=== PATIENT | male | born 1955 | race Caucasian/White ===

== ENCOUNTER → 2018-04-02 08:28 | Outpatient (CLI) | payer BC, SELFPAY ==
--- NOTE | 2018-04-02 08:31 | MR_ITS ---
MR head/brain wo con HISTORY: Headache and dizziness, syncope ITS.REASON: SYNCOPE ORDERING PHYSICIAN: Jon Arteaga MD PATIENT AGE: 62 years Comparison: 03/20/2019 TECHNIQUE: Standard multiplanar multiecho sequences are performed without contrast. FINDINGS: No midline shift, mass effect, intracranial hemorrhage, or hydrocephalus is evident. No evidence of acute infarction. There is mild generalized atrophy with scattered periventricular and subcortical T2 white matter hyperintensities. The cerebellopontine angles, cerebellum, and brainstem are unremarkable. The hippocampal gyri are unremarkable in the temporal horns are symmetric. Pituitary gland and optic chiasm are unremarkable. Craniocervical junction has an unremarkable appearance. No mastoid effusion or sinus air-fluid level. No large aneurysms. There is a cavum septum pellucidum and cavum vergae as a normal variant IMPRESSION: 1. No acute intracranial findings. 2. Scattered periventricular and subcortical T2 white matter hyperintensities which may be related to ischemic gliotic change from microvascular disease. Migraine headache. Have a similar appearance. Demyelinating process would be included in the differential diagnosis but felt to be less likely due to the imaging characteristics
== END ==
PROVIDERS: Family Provider Internal Medicine Adolescent Medicine; PCP Internal Medicine Adolescent Medicine; Visit Provider Internal Medicine Adolescent Medicine
DX: R55 Syncope and collapse (principal)
CPT/HCPCS: 70551; 95816

== ENCOUNTER → 2018-07-26 10:41 | Observation (INO) ==
[2018-07-25 12:04] LABS: Basophils % 0.4 % (0.1-2.0); Eosinophils % 0.3 % (0.1-12.0); Hematocrit 49.5 % (42.0-52.0); Hemoglobin 16.6 g/dL (14.1-18.0); Lymphocytes # 1.6 K/mm3 (0.7-4.5); Lymphocytes % 20.4 % (10-50); Mean Corpuscular HGB Conc 33.5 g/dL (31.8-35.4); Mean Corpuscular Hemoglobin 29.3 pg (27.0-31.2); Mean Corpuscular Volume 87.4 fl (80-94); Mean Platelet Volume 6.9 fl (7.4-10.4); Monocytes # 0.5 K/mm3 (0.1-1.0); Monocytes % 5.8 % (1.7-9.3); Neutrophils # 5.7 K/mm3 (1.8-7.8); Platelet Count 229 K/mm3 (142-424); Red Blood Count 5.67 M/mm3 (4.60-6.20); Red Cell Distribution Width 14.1 % (11.5-17.5); White Blood Count 7.7 K/mm3 (4.8-10.8)
[2018-07-25 12:13] LABS: Albumin Level 4.2 gm/dL (3.4-5.0); Albumin/Globulin Ratio 1.1 (1.1-1.8); Anion Gap 12.1 mEq/L (5-15); Bilirubin,Total 0.9 mg/dL (0.2-1.0); Calcium 8.9 mg/dL (8.5-10.1); Globulin 3.8 gm/dl (1.3-3.2); Potassium 4.1 mmoL/L (3.5-5.1)
--- NOTE | 2018-07-25 14:05 | Pharmacy Consult Notes ---
[facility] Pharmacy VTE Monitoring - Patient Demographics Admission date: 07/25/18 Report Date: 07/25/18 Time: 14:04 Allergies/Adverse Reactions: Patient Allergies venom-honey bee Allergy (Severe, Verified 07/25/18 11:58) swelling No Known Drug Allergies [NKDA] Allergy (Unknown, Verified 07/25/18 11:58) Height: 1.73 m Weight: 108.579 kg - VTE Risk Labs: VTE Related Lab Results Hgb 16.6 g/dL (14.1-18.0) 07/25/18 11:30 Hct 49.5 % (42.0-52.0) 07/25/18 11:30 Plt Count 229 K/mm3 (142-424) 07/25/18 11:30 BUN 16 mg/dL (7-18) 07/25/18 11:30 Creatinine 1.14 mg/dL (0.70-1.30) 07/25/18 11:30 Estimated Creat Clear 105 mL/min (50-200) 07/25/18 11:30 Was VTE Risk Assessment Performed: Yes VTE Score: 2 VTE Risk Level: Very Low Risk Clinical Trial Participant: No - Prophylaxis VTE Prophylaxis Ordered?: Yes Types of VTE Prophylaxis: TEDS Knee High
[2018-07-25 15:13] LABS: Microscopic, Urine URINE MICROSCOPIC (MICROSCOPIC)
[2018-07-25 15:15] LABS: Appearance,Urine CLEAR (Clear); Bilirubin,Urine Negative (Negative); Blood, Urine Negative (Negative); Color,Urine YELLOW (Yellow); Glucose,Urine (UA) Negative (Negative); Ketones,Urine Negative (Negative); Leukocyte Esterase,Urine Negative (Negative); PH,Urine 6.5 (5.0-8.5); Protein,Urine Negative (Negative); Specific Gravity, Urine <= 1.005 (1.005-1.030); Urobilinogen,Urine 0.2 EU/dl (0.2)
[2018-07-25 15:53] LABS: Mucus,Urine Trace /lpf
--- NOTE | 2018-07-25 21:02 | History & Physical Report ---
*Admission Date: 07/25/18 *Chief complaint: Mental Status Changes *History of present illness: Was in normal state of health and mind yesterday evening and early this AM per friends and family. Around 9AM drove to [place] for a breakfast with friends, but became confused and ended up in [place],after making several erratic calls to friends and family from his cell phone. Brought to my office and examined. Had improved, but was still "foggy" and described a "sinking" feeling followed by tingling before his memory lapse. [place] very fatigued after the episode. In office was more alert, but was placed in observation in [facility] for further eval and testing. [facility] History I have reviewed the patient's past medical history: Yes Medical History: Reports:: Asthma, Diabetes Mellitus Type 2, Hyperlipidemia, Hypertension Denies:: Cancer, Diabetes Mellitus Type 1, MRSA Have you ever received a pneumonia vaccine?: Yes Have you received a flu vaccine this season?: Yes Other Surgeries: Yes: Cardiac Catheterization Amputation: No - *Social History Educational Level: Completed College Smoking Status: Former smoker Tobacco Type: cigarettes Smoking End Date: 1997 Alcohol Intake: former Alcohol Intake Frequency:: holidays/special occasions only Occupational Status: employed Household Members: none Travel in the last 8 weeks: None - Psychiatric History Expresses thoughts of harming self/others: None Suicide Plan Description: No Plan Family Hx:: Anemia, Cancer, Coronary Artery Disease, Diabetes, Hyperlipidemia, Other (Seizures in brother, sister and mother) Review of Systems - Review of Systems Review of systems:: pertinent systems reviewed and negative unless documented below - Constitutional Denies anorexia, Denies body ache(s), Denies excessive sweating - Eyes Reports blurry vision, Denies blind spots - ENT Reports dizziness, Denies abnormal hearing, Denies bleeding gums - *Cardiovascular Denies chest pain - *Respiratory Denies change in phlegm color, Denies chest congestion - *Genitourinary Denies difficulty urinating - *Musculoskeletal Denies abnormal walking - Integumentary/Breasts Denies change in skin color, Denies yellowing of the skin - *Neurologic Reports abnormal hearing, Reports abnormal speech, Reports behavioral changes, Reports unsteadiness, Reports lack of coordination, Reports memory loss, Reports numbness, Reports tingling/numbness/burning sensations Meds Home Medications Medication Instructions Recorded Confirmed Type aspirin 81 mg tablet,delayed 162 mg PO DAILY tab 10/17/17 07/25/18 History release ezetimibe 10 mg tablet 10 mg PO HS tab 10/17/17 07/25/18 History fluticasone 200 mcg-vilanterol 25 1 inh INHALATION DAILY 10/17/17 07/25/18 History mcg/dose powder for inhalation liraglutide 0.6 mg/0.1 mL (18 mg/3 1.2 mg SUB-Q DAILY 10/17/17 07/25/18 History mL) subcutaneous pen injector montelukast 10 mg tablet 10 mg PO HS 10/17/17 07/25/18 History omeprazole 20 mg capsule,delayed 20 mg PO HS cap 10/17/17 07/25/18 History release sitagliptin 50 mg-metformin 1,000 1 tab PO HS 10/17/17 07/25/18 History mg tablet vitamin [id number] B1 100 mg-1 1 ml IM WEEKLY 01/02/18 07/25/18 History mg/mL intramuscular solution Albuterol Sulfate [Proair Hfa 1 puff INHALATION Q4HP PRN 07/25/18 07/25/18 History 90mcg/puff Inh] Atorvastatin Calcium [Atorvastatin 80 mg PO HS 07/25/18 07/25/18 History 80mg Tab] Fluticasone Propionate 2 spr IH DAILY 07/25/18 07/25/18 History Losartan Potassium 12.5 mg PO DAILY 07/25/18 07/25/18 History Tamsulosin HCl [Flomax 0.4mg 0.8 mg PO HS 07/25/18 07/25/18 History capsule] Allergies Allergy/AdvReac Type Severity Reaction Status Date / Time venom-honey bee Allergy Severe swelling Verified 07/25/18 11:58 No Known Drug Allergies Allergy Unknown Verified 07/25/18 11:58 [NKDA] Exam Vital signs and Labs for Last 24 Hours: Temp Pulse Resp BP Pulse Ox 98.0 F 77 18 122/82 95 07/25/18 19:54 07/25/18 19:54 07/25/18 19:54 07/25/18 19:54 07/25/18 19:54 Laboratory Results - last 24 hr 07/25/18 11:30: WBC 7.7, RBC 5.67, Hgb 16.6, Hct 49.5, MCV 87.4, MCH 29.3, MCHC 33.5, RDW 14.1, Plt Count 229, MPV 6.9 L, Neut % (Auto) 73.0, Lymph % (Auto) 20.4, [place] % (Auto) 5.8, Eos % (Auto) 0.3, Baso % (Auto) 0.4, Neut # (Auto) 5.7, Lymph # (Auto) 1.6, [place] # (Auto) 0.5, Eos # (Auto) 0.0, Baso # (Auto) 0.0 07/25/18 11:30: Sodium 138, Potassium 4.1, Chloride 101, Carbon Dioxide 29, Anion Gap 12.1, BUN 16, Creatinine 1.14, Estimated Creat Clear 105, Estimated GFR 65, Est GFR ( Amer) 79, Glucose 160 H, Calcium 8.9, Magnesium 2.0, Total Bilirubin 0.9, AST 16, ALT 56, Alkaline Phosphatase 79, Total Protein 8.0, Albumin 4.2, Globulin 3.8 H, Albumin/Globulin Ratio 1.1 07/25/18 11:30: Ammonia < 10 L 07/25/18 11:30: Urine Color Yellow, Urine Appearance Clear, Urine pH 6.5, Ur Specific [place] <= 1.005, Urine Protein Negative, Urine Glucose (UA) Negative, Urine Ketones Negative, Urine Blood Negative, Urine Nitrate Negative, Urine Bilirubin Negative, Urine Urobilinogen 0.2, Ur Leukocyte Esterase Negative, Urine RBC None, Urine WBC None, Ur Squamous Epith Cells None, Urine Bacteria None, Urine Mucus Trace 07/25/18 11:30: Troponin I < 0.02 07/25/18 17:26: Troponin I < 0.02 I & O for Last 24 hours: Intake & Output 07/23/18 07/24/18 07/25/18 07/26/18 11:59 11:59 11:59 11:59 Intake Total 842 / 842 Output Total 400 / 400 Balance 442 / 442 Weight 239 lb 6 oz 239 lb 6 oz - Constitutional no acute distress - *Routine HEENT Exam Head: Present: normocephalic, atraumatic Eye: Present: EOMI, PERRL, normal accommodation ENT: Present: mucous membranes moist - *Routine Neck Exam Present: supple, full ROM - *Routine Respiratory Exam Present: CTA bilaterally - *Routine Cardiovascular Exam Present: RRR, Normal S1, Normal S2 - *Routine Abdominal Exam Present: soft, normoactive bowel sounds - *Routine Neurological Exam Present: alert, oriented X3, CN II-XII intact, normal reflexes, moving all extremities, vision grossly intact, hearing grossly intact, normal speech. Absent: sensory deficit, motor deficit Assessment and Plan (1) Confusion Current visit: Yes Status: Acute Category: Medical Code(s): R41.0 - Disorientation, unspecified [place], but still sluggish. Admit for testing/labs/imaging. (2) Spell of altered consciousness Current visit: Yes Status: Acute Category: Medical Code(s): R40.4 - Transient alteration of awareness EEG ordered. ? seizure activity given family history and surrounding symptoms.
--- NOTE | 2018-07-26 09:00 | Discharge Summary ---
General - General Admission date:: 07/25/18 Discharge date: 07/26/18 HPI HPI: Was in normal state of health and mind yesterday evening and early this AM per friends and family. Around 9AM drove to [place] for a breakfast with friends, but became confused and ended up in [place],after making several erratic calls to friends and family from his cell phone. Brought to my office and examined. Had improved, but was still "foggy" and described a "sinking" feeling followed by tingling before his memory lapse. [place] very fatigued after the episode. In office was more alert, but was placed in observation in [facility] for further eval and testing. Hospital Course Hospital Course: Patient was admitted for observation. Telemetry was placed which was uneventful. EEG was obtained which was normal. CT head showed no acute pathology. He did well through the night with no episodes of confusion. He denies dizziness, headache or other neurological symptoms. He is tolerating oral intake well and wants to go home. Discharge home on [place] as his symptoms are concerning for seizures. Advised on [place] State Law that states no driving for 90 days. Patient verbalizes understanding. Will d/c on holter monitor with outpatient carotid dopplers and MRI of the head. FU in the office with Dr. Arteaga in 2 weeks. Objective Vital signs: Temp Pulse Resp BP Pulse Ox 98.2 F 74 16 119/68 98 07/26/18 08:00 07/26/18 08:00 07/26/18 08:00 07/26/18 08:00 07/26/18 08:00 Narrative: Alert and oriented x3. Strength and sensation equal bilaterally. Rate and rhythm regular. No LE edema. No JVD. No carotid bruit. Lung sounds clear and equal. Abdomen soft and nontender Results Labs on day of discharge: Labs from last 24 hours 07/25/18 07/25/18 07/25/18 17:26 11:30 11:30 WBC RBC Hgb Hct MCV MCH MCHC RDW Plt Count MPV Neut % (Auto) Lymph % (Auto) [place] % (Auto) Eos % (Auto) Baso % (Auto) Neut # (Auto) Lymph # (Auto) [place] # (Auto) Eos # (Auto) Baso # (Auto) Sodium Potassium Chloride Carbon Dioxide Anion Gap BUN Creatinine Estimated Creat Clear Estimated GFR Est GFR ( Amer) Glucose Calcium Magnesium Total Bilirubin AST ALT Alkaline Phosphatase Ammonia Troponin I < 0.02 < 0.02 Total Protein Albumin Globulin Albumin/Globulin Ratio Urine Color Yellow Urine Appearance Clear Urine pH 6.5 Ur Specific [place] <= 1.005 Urine Protein Negative Urine Glucose (UA) Negative Urine Ketones Negative Urine Blood Negative Urine Nitrate Negative Urine Bilirubin Negative Urine Urobilinogen 0.2 Ur Leukocyte Esterase Negative Urine RBC None Urine WBC None Ur Squamous Epith Cells None Urine Bacteria None Urine Mucus Trace 07/25/18 07/25/18 07/25/18 11:30 11:30 11:30 WBC 7.7 RBC 5.67 Hgb 16.6 Hct 49.5 MCV 87.4 MCH 29.3 MCHC 33.5 RDW 14.1 Plt Count 229 MPV 6.9 L Neut % (Auto) 73.0 Lymph % (Auto) 20.4 [place] % (Auto) 5.8 Eos % (Auto) 0.3 Baso % (Auto) 0.4 Neut # (Auto) 5.7 Lymph # (Auto) 1.6 [place] # (Auto) 0.5 Eos # (Auto) 0.0 Baso # (Auto) 0.0 Sodium 138 Potassium 4.1 Chloride 101 Carbon Dioxide 29 Anion Gap 12.1 BUN 16 Creatinine 1.14 Estimated Creat Clear 105 Estimated GFR 65 Est GFR ( Amer) 79 Glucose 160 H Calcium 8.9 Magnesium 2.0 Total Bilirubin 0.9 AST 16 ALT 56 Alkaline Phosphatase 79 Ammonia < 10 L Troponin I Total Protein 8.0 Albumin 4.2 Globulin 3.8 H Albumin/Globulin Ratio 1.1 Urine Color Urine Appearance Urine pH Ur Specific [place] Urine Protein Urine Glucose (UA) Urine Ketones Urine Blood Urine Nitrate Urine Bilirubin Urine Urobilinogen Ur Leukocyte Esterase Urine RBC Urine WBC Ur Squamous Epith Cells Urine Bacteria Urine Mucus DS: Diagnosis - Discharge Diagnosis (1) Confusion Status: Resolved (2) Spell of altered consciousness Status: Resolved (3) Type 2 diabetes mellitus Status: Chronic Discharge Plan - Patient Discharge Instructions ACTIVITY: Continue current activity DIET: diabetic diet Patient Instructions: DI for Altered Mental Status - Follow up Plan Follow up with: Jon Arteaga MD [Primary Care Provider] - 2 weeks Disposition: Home, [facility] Medications: Home Medications Medication Instructions Recorded Confirmed Type aspirin 81 mg tablet,delayed 162 mg PO DAILY tab 10/17/17 07/25/18 History release ezetimibe 10 mg tablet 10 mg PO HS tab 10/17/17 07/25/18 History fluticasone 200 mcg-vilanterol 25 1 inh INHALATION DAILY 10/17/17 07/25/18 History mcg/dose powder for inhalation liraglutide 0.6 mg/0.1 mL (18 mg/3 1.2 mg SUB-Q DAILY 10/17/17 07/25/18 History mL) subcutaneous pen injector montelukast 10 mg tablet 10 mg PO HS 10/17/17 07/25/18 History omeprazole 20 mg capsule,delayed 20 mg PO HS cap 10/17/17 07/25/18 History release sitagliptin 50 mg-metformin 1,000 1 tab PO HS 10/17/17 07/25/18 History mg tablet vitamin [id number] B1 100 mg-1 1 ml IM WEEKLY 01/02/18 07/25/18 History mg/mL intramuscular solution Albuterol Sulfate [Proair Hfa 1 puff INHALATION Q4HP PRN 07/25/18 07/25/18 History 90mcg/puff Inh] Atorvastatin Calcium [Atorvastatin 80 mg PO HS 07/25/18 07/25/18 History 80mg Tab] Fluticasone Propionate 2 spr IH DAILY 07/25/18 07/25/18 History Losartan Potassium 12.5 mg PO DAILY 07/25/18 07/25/18 History Tamsulosin HCl [Flomax 0.4mg 0.8 mg PO HS 07/25/18 07/25/18 History capsule] levETIRAcetam [Keppra 500mg tablet] 500 mg PO BID #60 tablet 07/26/18 Rx Prescriptions/Medication Reconciliation: New levETIRAcetam [Keppra 500mg tablet] 500 mg PO BID #60 tablet Continue omeprazole 20 mg capsule,delayed release 20 mg PO HS cap fluticasone 200 mcg-vilanterol 25 mcg/dose powder for inhalation 1 inh INHALATION DAILY ezetimibe 10 mg tablet 10 mg PO HS tab montelukast 10 mg tablet 10 mg PO HS sitagliptin 50 mg-metformin 1,000 mg tablet 1 tab PO HS aspirin 81 mg tablet,delayed release 162 mg PO DAILY tab liraglutide 0.6 mg/0.1 mL (18 mg/3 mL) subcutaneous pen injector 1.2 mg SUB-Q DAILY Albuterol Sulfate [Proair Hfa 90mcg/puff Inh] 1 puff INHALATION Q4HP PRN PRN Reason: asthma Fluticasone Propionate 2 spr IH DAILY Atorvastatin Calcium [Atorvastatin 80mg Tab] 80 mg PO HS Tamsulosin HCl [Flomax 0.4mg capsule] 0.8 mg PO HS Losartan Potassium 12.5 mg PO DAILY No Action vitamin [id number] B1 100 mg-1 mg/mL intramuscular solution 1 ml IM WEEKLY
== END | disposition home or self-care (01) ==
LOC: 2ND
PROVIDERS: ADMIT Internal Medicine Adolescent Medicine; ATTEND Internal Medicine Adolescent Medicine
CPT/HCPCS: 36415; 70470; 71010; 71045; 80053; 81001; 82140; 82175; 83655; 83735; 83825; 84484; 85025; 93005; 93225; 93226; 95816; G0378; Q9967

== ENCOUNTER → 2018-08-06 09:57 | Outpatient (CLI) | payer BC, SELFPAY ==
--- NOTE | 2018-08-06 10:02 | CI_ITS ---
Cerebrovascular Exam Indications: 780.2 Syncope and collapse. IMPRESSIONS 1. The bilateral vertebral arteries are patent with normal antegrade flow. 2. Study suggests less than 20% stenosis involving the right internal carotid artery and the left internal carotid artery. No change from the study of 29-Apr-2007. History: Memory loss. Carotid duplex study. Complete study and Doppler flow study including spectral analysis, color and weller scale imaging. Height: Height: 175.3cm. Height: 69in. Weight: Weight: 104.3kg. Weight: 229.5lb. Body mass index: BMI: 34kg/m^2. Body surface area: BSA: 2.29m^2. Location: Vascular laboratory. Patient status: Outpatient. Tables: Arterial flow: + +--------+--------+ Location V sys V ed + +--------+--------+ Right CCA - proximal 106cm/s 25.1cm/s + +--------+--------+ Right CCA - distal 62.9cm/s 17.3cm/s + +--------+--------+ Right ECA 128cm/s -------- + +--------+--------+ Right ICA - proximal 95.9cm/s 25.9cm/s + +--------+--------+ Right ICA - mid 63.6cm/s 21.2cm/s + +--------+--------+ Right ICA - distal 40.9cm/s 18.9cm/s + +--------+--------+ Right vertebral 29.1cm/s -------- + +--------+--------+ Left CCA - proximal 101cm/s 25.1cm/s + +--------+--------+ Left CCA - distal 121cm/s 29.1cm/s + +--------+--------+ Left ECA 84.1cm/s -------- + +--------+--------+ Left ICA - proximal 76.2cm/s 30.6cm/s + +--------+--------+ Left ICA - mid 82.5cm/s 33cm/s + +--------+--------+ Left ICA - distal 83.3cm/s 34.6cm/s + +--------+--------+ Left vertebral 39.3cm/s -------- + +--------+--------+ Velocity ratios: + + + + + + Right, V sys Right, V ed Left, V sys Left, V ed + + + + + + Max ICA/dist CCA 1.52 1.5 0.69 1.19 + + + + + + (Report amended ) Electronically signed by: Isai Sandoval [id number]
--- NOTE | 2018-08-06 10:50 | MR_ITS ---
MR head/brain wo/w con Ordering Physician: Jon Arteaga MD Patient Age: 62 years: Male HISTORY: .: COGNITIVE IMPAIREMENT, SYNCOPE Syncopal episodes last one was in March. Had episode were been no review is going. Disoriented.. Headache. TECHNIQUE: Pre and postcontrast images of the brain : Precontrast Multiplanar FLAIR, T1, T2 weighted images along with axial diffusion/ADC imaging performed on 1.5 T. Siemens, MRI. Postcontrast imaging [id number] ProHance T1-weighted images axial & coronal plane performed COMPARISON : March 2018 MRI of brain w CT head July 25, 2018 FINDINGS No significant change since March 2018 Diffusion images reveal no recent recent ischemia or infarct. . No territorial infarct Post contrast studies performed with today's exam. No mass lesion. No abnormal areas of enhancement There is diffuse cerebral atrophy again noted. Scattered small white matter high signal foci throughout the cerebral hemispheres again noted, similar to previous study with no definitive nor appreciable change.. Again this most likely reflect small vessel ischemic gliotic changes. Other considerations were discussed in previous study. Cranial cervical junction satisfactory. Sella and pituitary unremarkable. No extra-axial or subdural collection or findings. The [place] of [place] appears satisfactory on these overview images from this standard MRI. Posterior communicating artery patent most evident on right and very thin on left but I believe patent. The posterior fossa appears satisfactory. CP angles clear. Cranial nerve VII and VIII unremarkable. The mastoid air cells are unremarkable. The paranasal sinuses satisfactory. Engorgement of turbinates with deviation nasal septum to the right. Orbits unremarkable. Scalp and skull unremarkable. Cavum septum pellucidum et vergae again noted.. Anatomical variant midline structures between lateral ventricles.. IMPRESSION:... 1.. No significant new findings.: .. No significant change since March 2018 . 2. IV Contrast was utilized today-No abnormal areas of enhancement. No mass lesion 3. Scattered small deep white matter high signal foci most compatible with likely reflect small vessel ischemic gliotic changes. Unchanged since prior 2018 study. 4. Mild cerebral atrophy . Cavum septum pellucidum again noted.- Anatomical variant
--- NOTE | 2018-08-06 12:13 | HMH.ITSHM ---
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 []OMEPRAZOLE ALBUTEROL TAMSULOSIN ZETIA ASTROVASTIN MONTELUKAST JANUMET FLUTICASONE ASPIRIN VICTOZA LOSARTAN
== END ==
PROVIDERS: PCP Internal Medicine Adolescent Medicine; Visit Provider Internal Medicine Adolescent Medicine
DX: R55 Syncope and collapse (principal); R41.89 Other symptoms and signs involving cognitive functions and awareness
CPT/HCPCS: 70553; 93880; A9576

== ENCOUNTER 2018-10-26 09:30 | Outpatient (RCR) | payer BC, SELFPAY ==
--- NOTE | 2018-10-10 11:19 | HMH.PTOPEV ---
PT Outpatient Evaluation Rehab PT Outpatient Evaluation Start: 10/10/18 11:11 Freq: Status: Active Protocol: Document 10/10/18 11:11 ABDOULAYE (Rec: 10/10/18 11:19 ABDOULAYE [id number]) Electronically Signed By Magnus Sanchez, PT 10/10/18 11:11 Outpatient Therapy Subjective History Subjective History Pt reports insidious onset R sided LBP beginning ~2-3 months ago. Pt reports increased s/s w/sitting or driving, producing some referred pain into posterior hip area and causing some ' popping' episodes. Chief Complaint Pain,Clicks Symptom Type Ache,Dull Symptoms Relieved By Activity Symptoms Aggravated By Sitting Prior Functional Limitations Driving,Sitting Current Functional Limitations Driving,Sitting Symptom Description Constant but Variable Level of pain today (0-10) 2 Pain scale - at its best (0-10) 1 Pain scale - at its worst (0-10) 7 Lumbopelvic Eval Posture Thoracic Spine Posture Standing Position Neutral Lumbar Spine Posture Standing Position Neutral Assistive device Assistive Devices None / NA Gait Observation General Gait Pattern Observation No Deviations/Normal Palapation tenderness right lumbar spinal tenderness Yes: 2-3/4 Lumbar/Sacral Palpation Findings Tenderness Lumbar/Sacral Palpation Overall Comment R SI JT 2-3/4 Accessory Movement L-spine Vertebrae Accessory Movements Central P/A [place] that Elicit Symptoms L2 bilateral L3 bilateral L4 bilateral L5 bilateral S1 bilateral Range of Motion Lumbar Spine Active Flexion Range of 0-70 Motion (degrees) Lumbar Spine Active Extension Range of 0-25 Motion (degrees) Left Lumbar Spine Lateral Flexion Active 0-25 Range of Motion (degrees) Right Lumbar Spine Lateral Flexion 0-25* Active Range of Motion (degrees) Lumbar Spine ROM Limitations Pain Manual Muscle Test Bilateral Knee Extension Strength Grade 5 Normal Knee Flexion Strength Grade 5 Normal Hip Flexion Strength Grade 4- Good- Hip Abduction Strength Grade 4 Good Hip Adduction Strength Grade 4- Good- Hip External Rotation Strength Grade 4 Good Hip Internal Rotation Strength Grade 4 Good Extensor Hallucis Longus Strength Grade 5 Normal Ankle Dorsiflexion Strength Grade 5 Normal Gastronemius/Soleus Strength Grade 5 Normal Special Tests Hip Sitting Root Test Negative Left,Negative Right Forward Bending Test- Sitting Nega
== END 2018-10-26 09:35 | disposition home or self-care (01) ==
LOC: PT 09:30
PROVIDERS: Visit Provider Internal Medicine Adolescent Medicine
DX: M46.1 Sacroiliitis, not elsewhere classified (principal)
CPT/HCPCS: 97010; 97014; 97110; 97163; G0283

== ENCOUNTER → 2019-08-12 12:57 | Outpatient (CLI) | payer BC, SELFPAY | PROVIDERS: PCP Internal Medicine Adolescent Medicine; Visit Provider Internal Medicine Adolescent Medicine | DX: G47.33 Obstructive sleep apnea (adult) (pediatric) (principal); R40.0 Somnolence; R06.83 Snoring | CPT/HCPCS: G0399 ==

== ENCOUNTER → 2019-12-21 08:55 | Outpatient (CLI) | payer BC, SELFPAY ==
[2019-12-21 10:05] LABS: Coronavirus 19 IgG Antibody Negative (Negative); Coronavirus 19 IgM Antibody Negative (Negative)
== END ==
PROVIDERS: Visit Provider Internal Medicine Gastroenterology
DX: Z01.818 Encounter for other preprocedural examination (principal)
CPT/HCPCS: 36415; 86328

== ENCOUNTER 2019-12-23 07:24 | Day surgery (SDC) | payer BC, SELFPAY ==
[2019-12-16 11:00] VITALS: BMI 34.0
[2019-12-23] VITALS (7 sets, daily range): BP systolic 108–142; BP diastolic 70–82; PULSE 62–79; RESP 18; TEMP 36.7–36.9; O2SAT 93–97
[2019-12-23 08:10] LABS: POC Glucose,Bedside 132 (70-110)
--- NOTE | 2019-12-23 08:22 | HMH.ANESCL ---
[facility] Anesthesia Checklist - Patient Identification Patient Identification: Arm Band - Structural Data Admitted From: Home Planned Operative Procedure/s: colonoscopy Consent for Planned Operative Procedure(s) Verified: Yes Verified Documents: Surgical Consent, History and Physical - NPO Status Verified Time NPO: 00:00 - Additional verifications Anesthesia Reactions: No - Airway Assessment C-Spine Mobility Assessed: Yes (mp2) TMJ Mobility Assessed: Yes Dentition: Good Dentition - Neurological Assessment Level of Consciousness: Awake, Alert - Anesthesia Plan Anesthesia Risk discussed: Yes Anesthesia Plan: Verified ASA Class: III Anesthesia Type: [facility] History I have reviewed the patient's past medical history: Yes Medical History: Reports:: Asthma, Chronic Obstructive Pulmonary Disease (COPD), Diabetes Mellitus Type 2, Hyperlipidemia, Hypertension, Seizures (2018) Denies:: Cancer, Diabetes Mellitus Type 1, Internal Pacemaker, MRSA *Have you ever received a pneumonia vaccine?: No *Have you received a flu vaccine this season?: No Anesthesia experience/problems:: nac Other Surgeries: Yes: Cardiac Catheterization (7-9 yrs ago). No: Pacemaker Amputation: No Fractures: No - *Social History Smoking Status: Former smoker Tobacco Type: cigarettes Alcohol Intake: former Alcohol Intake Frequency:: holidays/special occasions only Substance Use Type: denies use *Occupational Status:: employed Housing: house Household Members: none *Travel in the last 8 weeks: None Family Hx:: Anemia, Cancer, Coronary Artery Disease, Diabetes, Hyperlipidemia, Other (Seizures in brother, sister and mother)
--- NOTE | 2019-12-23 09:06 | HMH.PROC ---
[facility] Procedure Note Procedure Note:: Colonoscopy Procedure Report: Colonoscopy with cold snare polypectomy Endoscopist: Bryce Araya II, MD Referring physician: Jon Arteaga M.D. Date of Procedure: December 23, 2019 Equipment: Olympus 180 variable stiffness pediatric colonoscope Sedation: MAC sedation Indication: Mr. Patterson is a 64-year-old gentleman who is here for follow-up screening/surveillance colonoscopy secondary to a personal history of colon polyps. He did have a colonoscopy 5 years ago at which time adenomatous polyps were removed. The patient does get rare intermittent diarrhea after eating a spicy meal. He will occasionally see some spotting of blood from internal hemorrhoids on the tissue. He reports no abdominal pain, weight loss, change in bowel habits or family history of colon cancer. Procedure: Prior to the procedure, a history and physical exam was performed, and patient's medications and allergies were reviewed. The risks, benefits and alternatives of the sedation and procedure were discussed with the patient. All questions were answered and informed consent was obtained. The patient was brought to the procedure room. Patient identification and proposed procedure were verified by the physician and the nurse. The patient was placed in a left lateral decubitus position and the scope was passed under direct vision. Throughout the procedure, the patient's blood pressure, pulse, and oxygen saturations were monitored continuously. The colonoscopy was accomplished without difficulty. The patient tolerated the procedure well. Findings: On digital rectal examination there was normal rectal tone. There were no external hemorrhoids. The prostate was 3+, moderately enlarged and mildly firm without nodules. The colonoscope was introduced through the anal canal to the rectum and advanced to the cecum. The ileocecal valve and appendiceal orifice were identified. The scope was advanced a short distance into the ileum which appeared grossly normal. The scope was then withdrawn into the colon. There were 4 colon polyps (cecum x1 (4 mm) and ascending x3 (4, 4 and 6 mm)) which were all removed via cold snare polypectomy. There were scattered diverticuli throughout the colon but more predominantly in the descending and sigmoid colon (LEFT colon). The rectum itself was normal. Upon retroflexion within the rectum there were grade 2 internal hemorrhoids. The preparation was good throughout with Calamus Preparation Score of 8 out of 9. The cecal time was 13 minutes. Impression: 1. Colonic polyps x4 2. Pandiverticulosis 3. Grade 2 internal hemorrhoids 4. Enlarged prostate Plan: I will follow up the polyp pathology and recommend repeat colonoscopy again in 3-5 years based upon the polyp histology. I would encourage fiber supplementation on a long-term daily maintenance basis.
== END 2019-12-23 09:58 | disposition home or self-care (01) ==
LOC: OUTP 07:25
PROVIDERS: PCP Internal Medicine Adolescent Medicine; Visit Provider Internal Medicine Gastroenterology
PROC: 0DJD8ZZ Inspection of Lower Intestinal Tract, Via Natural or Artificial Opening Endoscopic (ICD-10-PCS; CPT 45378; principal; 2019-12-23 08:30)
DX: Z12.11 Encounter for screening for malignant neoplasm of colon (principal); N40.0 Benign prostatic hyperplasia without lower urinary tract symptoms; K63.5 Polyp of colon; K57.30 Diverticulosis of large intestine without perforation or abscess without bleeding; K64.1 Second degree hemorrhoids; Z86.010 Personal history of colon polyps; I10 Essential (primary) hypertension; E78.5 Hyperlipidemia, unspecified; J44.9 Chronic obstructive pulmonary disease, unspecified; E11.9 Type 2 diabetes mellitus without complications; R56.9 Unspecified convulsions; Z79.899 Other long term (current) drug therapy
CPT/HCPCS: 45385; 82962

== ENCOUNTER → 2020-03-12 09:30 | Outpatient (CLI) | payer BC, SELFPAY ==
--- NOTE | 2020-03-12 09:41 | XR_ITS ---
PROCEDURE: XR WRIST RT MIN 3V CLINICAL INDICATION: RT WRIST PAIN COMPARISON: No exams were available for comparison FINDINGS: There is a faint calcific density along the dorsal and mid to distal aspect of the wrist which could be due to an avulsion injury of the triquetrum. Please correlate as the patient's area of pain and tenderness. No other significant anomalies are evident. IMPRESSION: Possible triquetrum avulsion otherwise negative Dictated by: Catracho Jimenez MD 03/12/2020 16:35 Catracho Jimenez MD in [place] 03/12/2020 16:35
== END ==
PROVIDERS: PCP Internal Medicine Adolescent Medicine; Visit Provider Internal Medicine Adolescent Medicine
DX: M25.531 Pain in right wrist (principal)
CPT/HCPCS: 73110

== ENCOUNTER → 2020-04-14 10:09 | Outpatient (CLI) | payer BC, SELFPAY ==
--- NOTE | 2020-04-14 10:13 | XR_ITS ---
PROCEDURE: XR WRIST RT MIN 3V CLINICAL INDICATION: right wrist fx Pain following injury, possible triquetrum avulsion COMPARISON: CR XR WRIST RT MIN 3V from 03/12/2020 FINDINGS: No fracture or dislocation. No lytic or blastic change. There is normal mineralization. The joint spaces are well-preserved. No significant degenerative/arthritic changes. No erosive changes evident. Other findings:The previously noted faint calcific density along the dorsal and mid aspect of the wrist is not identified on today's exam and could be related to either slight difference in positioning or healing the previous noted avulsion fracture. IMPRESSION: Previously noted suspected triquetrum avulsion fracture not identified and may be due to interval healing or slight difference in position Dictated by: Catracho Jimenez MD 04/14/2020 16:40 Catracho Jimenez MD in [place] 04/14/2020 16:40
--- NOTE | 2020-04-14 10:55 | XR_ITS ---
PROCEDURE: XR HIP RT 2-3V W/PELVIS CLINICAL INDICATION: right hip apin COMPARISON: No exams were available for comparison FINDINGS: No fracture or dislocation. No lytic or blastic change. There are minimal osteoarthritic changes of the right hip. There is some mild soft tissue calcification along the greater trochanteric region nonspecific. Vascular calcification also noted. IMPRESSION: Minimal osteoarthritic change of the right hip Dictated by: Catracho Jimenez MD 04/14/2020 16:34 Catracho Jimenez MD in [place] 04/14/2020 16:34
--- NOTE | 2020-04-14 10:55 | XR_ITS ---
PROCEDURE: XR SACROILIAC JOINT BI MIN 3V CLINICAL INDICATION: right si joint Popping in right hip COMPARISON: CR XR HIP RT 2-3V W/PELVIS from 04/14/2020 FINDINGS: No fracture or dislocation. No lytic or blastic change. There is normal mineralization. The joint spaces are well-preserved. No significant degenerative/arthritic changes. No erosive changes evident. Other findings:The SI joints have an unremarkable appearance. There are minimal osteoarthritic changes in the right hip IMPRESSION: Negative SI joints Dictated by: Catracho Jimenez MD 04/14/2020 16:33 Catracho Jimenez MD in [place] 04/14/2020 16:33
== END ==
PROVIDERS: PCP Internal Medicine Adolescent Medicine; Visit Provider Orthopaedic Surgery
DX: S62.111A Displaced fracture of triquetrum [cuneiform] bone, right wrist, initial encounter for closed fracture (principal); M25.551 Pain in right hip
CPT/HCPCS: 72202; 73110; 73502

== ENCOUNTER → 2020-09-14 08:09 | Outpatient (CLI) | payer BC, SELFPAY ==
--- NOTE | 2020-09-14 08:22 | US_ITS ---
PROCEDURE: US ABD. AORTA SCREENING CLINICAL INDICATION: H/O NICOTINE DEPENDENCE COMPARISON: No exams were available for comparison FINDINGS: The aorta is normal in caliber through its entire extent. No evidence of abdominal aortic aneurysm is noted. IMPRESSION: No evidence of abdominal aortic aneurysm. Dictated by: Rosa Cali 09/14/2020 17:48 Rosa Cali in [place] 09/14/2020 17:48
== END ==
PROVIDERS: PCP Internal Medicine Adolescent Medicine; Visit Provider Internal Medicine Adolescent Medicine
DX: Z13.6 Encounter for screening for cardiovascular disorders (principal); Z87.891 Personal history of nicotine dependence
CPT/HCPCS: 76705

== ENCOUNTER → 2020-11-11 12:08 | Outpatient (CLI) | payer BC, SELFPAY ==
[2020-11-11 12:26] LABS: Basophils # 0.1 K/mm3 (0-0.2); Basophils % 0.8 % (0.1-2.0); Eosinophils % 0.8 % (0.1-12.0); Hematocrit 49.2 % (42.0-52.0); Hemoglobin 16.7 g/dL (14.1-18.0); Lymphocytes # 2.1 K/mm3 (0.7-4.5); Lymphocytes % 36.9 % (10-50); Mean Corpuscular Hemoglobin 29.5 pg (27.0-31.2); Mean Corpuscular Volume 86.9 fl (80-94); Mean Platelet Volume 8.2 fl (7.4-10.4); Monocytes # 0.4 K/mm3 (0.1-1.0); Neutrophils # 3.2 K/mm3 (1.8-7.8); Neutrophils % 55.5 % (37.0-80.0); Platelet Count 217 K/mm3 (142-424); Red Blood Count 5.67 M/mm3 (4.60-6.20); Red Cell Distribution Width 13.5 % (11.5-17.5); White Blood Count 5.8 K/mm3 (4.8-10.8)
[2020-11-11 13:04] LABS: Hemoglobin A1C 10.4 % (4.0-6.0)
[2020-11-11 13:06] LABS: Chloride 100 mmol/L (98-107); Potassium 4.9 mmoL/L (3.5-5.1); Sodium 137 mmol/L (136-145)
[2020-11-11 13:08] LABS: Blood Urea Nitrogen 13 mg/dl (9-20); Estimated Glomerular Filt Rate 85 ml/min (>60); GFR (African American) 103 ML/MIN (>60)
[2020-11-11 13:09] LABS: Alanine Aminotransferase 65 U/L (12-78); Albumin Level 4.7 g/dl (3.5-5.0); Albumin/Globulin Ratio 1.7 (1.1-1.8); Alkaline Phosphatase 103 U/L (38-126); Anion Gap 13.9 mEq/L (5-15); Aspartate Amino Transferase 36 U/L (17-59); Bilirubin,Total 1.4 mg/dl (0.2-1.3); Calcium 9.4 mg/dl (8.4-10.2); Carbon Dioxide 28 mmol/L (22.0-30.0); Globulin 2.7 g/dL (1.3-3.2); Glucose 254 mg/dl (74-100); Total Protein,Serum 7.4 g/dl (6.3-8.2)
== END ==
PROVIDERS: Visit Provider Internal Medicine Adolescent Medicine
DX: E11.9 Type 2 diabetes mellitus without complications (principal); E78.5 Hyperlipidemia, unspecified; Z79.84 Long term (current) use of oral hypoglycemic drugs
CPT/HCPCS: 36415; 80053; 83036; 85025

== ENCOUNTER → 2021-03-15 12:11 | Outpatient (CLI) | payer BC, SELFPAY ==
[2021-03-15 12:33] LABS: Basophils # 0.1 K/mm3 (0-0.2); Eosinophils # 0.1 K/mm3 (0.0-0.4); Eosinophils % 0.8 % (0.1-12.0); Hemoglobin 15.6 g/dL (14.1-18.0); Lymphocytes # 2.2 K/mm3 (0.7-4.5); Lymphocytes % 34.4 % (10-50); Mean Corpuscular HGB Conc 32.5 g/dL (31.8-35.4); Mean Corpuscular Hemoglobin 29.5 pg (27.0-31.2); Mean Corpuscular Volume 90.7 fl (80-94); Mean Platelet Volume 8.1 fl (7.4-10.4); Monocytes # 0.4 K/mm3 (0.1-1.0); Monocytes % 6.2 % (1.7-9.3); Neutrophils # 3.7 K/mm3 (1.8-7.8); Neutrophils % 57.6 % (37.0-80.0); Platelet Count 237 K/mm3 (142-424); Red Blood Count 5.29 M/mm3 (4.60-6.20); Red Cell Distribution Width 14.1 % (11.5-17.5); White Blood Count 6.4 K/mm3 (4.8-10.8)
[2021-03-15 13:17] LABS: Chloride 104 mmol/L (98-107)
[2021-03-15 13:18] LABS: Potassium 4.8 mmoL/L (3.5-5.1); Sodium 140 mmol/L (136-145)
[2021-03-15 13:20] LABS: Alanine Aminotransferase 38 U/L (12-78); Albumin Level 4.2 g/dl (3.5-5.0); Albumin/Globulin Ratio 1.6 (1.1-1.8); Alkaline Phosphatase 79 U/L (38-126); Anion Gap 10.8 mEq/L (5-15); Aspartate Amino Transferase 29 U/L (17-59); Bilirubin,Total 0.8 mg/dl (0.2-1.3); Blood Urea Nitrogen 8 mg/dl (9-20); Calcium 9.4 mg/dl (8.4-10.2); Carbon Dioxide 30 mmol/L (22.0-30.0); Cholesterol 122 mg/dl (140-200); Estimated Glomerular Filt Rate 85 ml/min (>60); GFR (African American) 103 ML/MIN (>60); Globulin 2.7 g/dL (1.3-3.2); Glucose 128 mg/dl (74-100); Total Protein,Serum 6.9 g/dl (6.3-8.2); Triglycerides 79 mg/dl (30-150); VLDL Cholesterol 16 mg/dL (0-40)
[2021-03-15 13:21] LABS: Chol/HDL Ratio 2.4 (1-3.5); HDL Cholesterol 51 mg/dl (40-60)
[2021-03-15 13:41] LABS: Triiodothryronine (T3) Uptake 32 % (23.5-40.5)
[2021-03-15 13:42] LABS: Free Thyroxine Index 2.8 ug/dL (5.93-13.13); T4 (Thyroxine) 8.8 ug/dl (5.53-11.0)
[2021-03-15 13:55] LABS: Thyroid Stimulating Hormone 0.77 uIU/mL (0.465-4.68)
[2021-03-15 14:41] LABS: Direct LDL Cholesterol 58.46 mg/dL (100-129)
[2021-03-15 15:21] LABS: Vitamin B12 246 pg/mL (239-931)
[2021-03-19 12:17] LABS: Levetiracetam (Keppra) 13.5 ug/mL (10.0-40.0)
[2021-03-20 12:09] LABS: Methylmalonic Acid 124 nmol/L (0-378)
== END ==
PROVIDERS: Visit Provider Internal Medicine Adolescent Medicine
DX: E11.9 Type 2 diabetes mellitus without complications (principal); R41.3 Other amnesia; E66.9 Obesity, unspecified; Z68.34 Body mass index [BMI] 34.0-34.9, adult; Z79.84 Long term (current) use of oral hypoglycemic drugs
CPT/HCPCS: 36415; 80053; 80061; 80177; 82131; 82306; 82607; 83036; 84436; 84443; 84479; 85025

== ENCOUNTER → 2021-03-29 10:16 | Outpatient (CLI) | payer BC, SELFPAY ==
--- NOTE | 2021-03-29 10:19 | MR_ITS ---
PROCEDURE: MR HEAD/BRAIN WO CON CLINICAL INDICATION: MEMORY LOSS, ATAXIA Headache COMPARISON: MR BRAINWO MR head/brain wo con from 04/02/[address] head/brain wo/w con from 07/25/2018 TECHNIQUE: Routine multiplanar multi echo sequences are performed without gadolinium enhancement. FINDINGS: No midline shift, mass effect, intracranial hemorrhage, or hydrocephalus is evident. There is a cavum septum pellucidum is a normal variant. The cerebellopontine angles, cerebellum, and brainstem have an unremarkable appearance. There is scattered T2 white matter hyperintensities as before not significantly changed. The pituitary, optic chiasm, corpus callosum, and craniocervical junction has an unremarkable appearance. There is mild rightward nasal septal deviation. No mastoid effusion or sinus air-fluid level. IMPRESSION: No significant change with no acute intracranial findings. Scattered T2 white matter hyperintensities most commonly seen with microangiopathy not significantly changed Dictated by: Catracho Jimenez MD 03/31/2021 09:01 Catracho Jimenez MD in [place] 03/31/2021 09:01
== END ==
PROVIDERS: PCP Internal Medicine Adolescent Medicine; Visit Provider Internal Medicine Adolescent Medicine
DX: R41.3 Other amnesia (principal); R27.0 Ataxia, unspecified; R51.9 Headache, unspecified
CPT/HCPCS: 70551

== ENCOUNTER → 2023-06-07 07:24 | Outpatient (CLI) | payer MEDICARE, SELFPAY ==
[2023-06-07 07:47] LABS: Blood Urea Nitrogen 15 mg/dl (9-20); Estimated Glomerular Filt Rate 67 ml/min (>60); GFR (African American) 81 ML/MIN (>60)
--- NOTE | 2023-06-07 08:11 | CT_ITS ---
FINAL REPORT TECHNIQUE: NASCET technique utilized for stenosis evaluation. CLINICAL HISTORY: CHEST PAIN, ABNORMAL ECG COMPARISON: None FINDINGS: CTA NECK SOFT TISSUES: RIGHT CAROTID: There is mild calcification of the right carotid bulb. No significant stenosis of the common or internal carotid artery is seen. LEFT CAROTID: No significant stenosis seen of the cervical common or internal carotid artery. VERTEBRALS: The vertebrals are patent, and codominant No significant stenosis is present. Moderate to severe changes of centrilobular emphysema are noted in the lung apices. There is mild mucoperiosteal thickening in the left maxillary sinus. IMPRESSION: No significant arterial abnormality. Reviewed, Interpreted and Dictated by Dariusz Nogueira MD Transcribed by Greta Dale Authenticated and [facility]
== END ==
PROVIDERS: PCP Internal Medicine Adolescent Medicine; Visit Provider Internal Medicine Adolescent Medicine
DX: Z01.812 Encounter for preprocedural laboratory examination (principal); R07.9 Chest pain, unspecified; R94.31 Abnormal electrocardiogram [ECG] [EKG]
CPT/HCPCS: 36415; 70498; 82565; 84520; Q9967

== ENCOUNTER 2023-06-22 11:46 | Outpatient (CLI) | payer MEDICARE, SELFPAY ==
[2023-06-22] VITALS (10 sets, daily range): BP systolic 89–137; BP diastolic 55–74; PULSE 61–92; RESP 16–18; TEMP 36.3–36.4; O2SAT 92–100; BMI 32.5
--- NOTE | 2023-06-22 11:53 | CT_ITS ---
APPROVED REPORT Battery Assembler: CLINICAL INDICATION Chest Pain TECHNIQUE Image Acquisition: A 128 slice MDCT scanner (Humedicsa View) was used for data acquisition. A noncontrast coronary calcium scan was performed. A CT attenuation threshold of 130 Hounsfield units (HU) was used for the detection of calcium in contiguous voxels of 1 sq mm in area to be counted as individual lesions. Bolus tracking in the ascending aorta with a threshold of 180 HU was performed. Immediately afterwards, ECG synchronized cardiac CT was then performed from the cardiac base to apex using retrospective gating with ECG tube current modulation. A total of 85 mL of Isovue 370 mg/mL contrast medium was administered at 5 mL/sec followed by a saline flush using a biphasic injection protocol. A tube voltage of 120 KVp was used. The patient received the following medications prior to the cardiac CT. 100 mg of oral metoprolol 20 mg of intravenous metoprolol 0.8 mg of sublingual nitroglycerin The average heart rate at the time of acquisition was 63 bpm and regular. Image Reconstruction Transaxial images were reconstructed at 0.67 mm slide thickness. Data was reviewed interactively on an advanced workstation capable of 2 and 3-dimensional displays in all conventional reconstruction formats, including multiplanar reformations, maximum intensity projections, curved multiplanar reformations, and volume rendered reconstructions. When applicable, selected routine images describing the relevant coronary anatomy and pathology were saved and sent to PACS. Complications None Technical Quality Overall image quality was good. Coronary artery opacification was adequate. Total DLP (Dose-Length Product) is 1216.7 mGy-cm. The reported value represents the total of one or more individual components during the CT acquisition of this date and at this time, and as such, the same value may appear in more than one CT report depending on the interpreting/reporting physicians. COMPARISON None FINDINGS CT Coronary Calcium Scoring LMA (Left Main Artery) = 6 LAD (Left Anterior Descending) = 0 LCX (Left Coronary Circumflex) = 7 RCA (Right Coronary Artery) = 32 Total Calcium Score = 45 using the AJ-130 method. The observed calcium score of 45 is at 41st percentile for subjects of the same age, sex, and race/ethnicity. The interpretation of the calcium heart score is based on the following continuum*: 0 = no calcified plaque detected (risk of coronary artery disease is very low ??? less than 5%) 1-10 = calcium detected in extremely minimal levels (risk of coronary diseases is still low ??? less than 10%) 11-100 = mild levels of plaque detected with certainty (mild or minimal narrowing of heart arteries is likely) 101-400 = definite,at least moderate levels of plaque detected (relatively high risk of a heart attack within 3-5 years) >401-999 = extensive levels of plaque detected (high risk of heart attack, high levels of vascular disease are present, high likelihood of at least one significant coronary narrowing) *The calcium heart score quantifies the burden of coronary calcification/plaque in the coronary arteries. The calcium heart score is not able to evaluate the presence or burden of non-calcified (i.e. soft) plaque. There is also identifiable calcification in the aortic valve, mitral valve annulus, and ascending and descending thoracic aorta. Coronary CT Angiography The coronary arterial system is left dominant. Quantitative Stenosis Grading: Left Main (LM): The left main originates normally from the left sinus of Valsalva. The LM bifurcates into the left anterior descending artery and left circumflex artery. There is mild calcification in the mid-LM, but no evidence of luminal stenosis. Left Anterior Descending (LAD) and Diagonal Branches: The LAD gives off 2 diagonal branches. There is a non-calcified plaque at the ostial first diagonal D1 branch with up to 50% luminal stenosis. There is no evidence of LAD bridge. Left Circumflex (LCX) and Obtuse Marginals (OM): The LCX gives off 2 Obtuse Marginal (OM) branch(es). There is calcification in the proximal LCX, but no evidence of luminal stenosis. Right Coronary Artery (RCA): The RCA originates normally from the right sinus of Valsalva. The RCA is a small caliber vessel. There is focal calcified plaque in the proximal RCA with mild 30-50% luminal stenosis. Non-Coronary Cardiac Findings: Analysis of the left ventricular (LV) structure and function was performed after 3-D reconstruction of the LV from axial images, with user-corrected automatic contouring for assessment of LV volumes and user-defined reconstruction from oblique planes for measurement of 3-D cardiac structure and function. LVEDV: 179 mL LVESV: 89 mL SV: 90 mL LVEF: 50% -The left ventricle is normal in size with low-normal left ventricular systolic function. -There is no left atrial appendage filling defect. Two right pulmonary veins and two left pulmonary veins drain normally into the left atrium. -No pericardial thickening or calcification. -Central and branch pulmonary arteries in the [id number] are unremarkable. -Thoracic aorta within the visualized thoracic aortic-branches in the [id number] is unremarkable. Extracardiac Structures No significant extra-cardiac findings. IMPRESSION -Presence of coronary calcification with an Agatston score = 45 using the AJ-130 method. -The observed calcium score of 45 is at 41st percentile for subjects of the same age, sex, and race/ethnicity. -Multiple non-obstructive plaque in the coronary artery tree, involving the LAD/D1 branch and the proximal RCA. -CAD-RADS 3. Management recommendations per ACC/AHA guidelines*, as clinically appropriate. -Low-normal LV systolic function. Further evaluation with TTE is recommended to evaluate LVEF (as CCTA ia more likely to overestimate LVEF). *Recommendations: CAD RADS 0: Reassurance. Consider non-atherosclerotic causes of chest pain. CAD RADS 1: Consider non-atherosclerotic causes of chest pain. Consider preventive therapy and risk factor modification. CAD RADS 2: Consider non-atherosclerotic causes of chest pain. Consider preventive therapy and risk factor modification, particularly for patients with nonobstructive plaque in multiple segments. CAD RADS 3: Consider further functional/stress testing. Consider symptom-guided anti-ischemic and preventive pharmacotherapy as well as risk factor modification per published guideline statements. CAD RADS 4A: Consider further functional testing or invasive coronary angiography with revascularization per published guideline statements. Consider symptom-guided anti-ischemic and preventive pharmacotherapy as well as risk factor modification per published guideline statements. CAD RADS 4B: Invasive coronary angiography recommended with revascularization per published guideline statements. Consider symptom-guided anti-ischemic and preventive pharmacotherapy as well as risk factor modification per published guideline statements. CAD RADS 5: Consider invasive angiography and/or viability assessment with revascularization per published guideline statements. Consider symptom-guided anti-ischemic and preventive pharmacotherapy as well as risk factor modification per published guideline statements. CRITICAL RESULT None COMMUNICATION Per this written report The coronary and cardiac findings of this CCTA were reviewed, reported, and signed by Jong Chisholm MD (Box Feeder) Conclusion Electronically signed by : Laura Chisholm MD 06/28/2023 12:12:31
[2023-06-22] MEDS: METOPROLOL TARTRATE 50MG TABLET 100 MG PO (12:33)
[2023-06-22 12:37] LABS: POC Glucose,Bedside 205 (70-110)
[2023-06-22 12:44] LABS: Alanine Aminotransferase 70 U/L (12-78); Albumin Level 4.3 g/dl (3.5-5.0); Albumin/Globulin Ratio 1.5 (1.1-1.8); Alkaline Phosphatase 73 U/L (38-126); Anion Gap 4.7 mEq/L (5-15); Aspartate Amino Transferase 42 U/L (17-59); Bilirubin,Total 1.1 mg/dl (0.2-1.3); Blood Urea Nitrogen 10 mg/dl (9-20); Calcium 8.8 mg/dl (8.4-10.2); Carbon Dioxide 33 mmol/L (22.0-30.0); Chloride 100 mmol/L (98-107); Creatinine Clearance Estimated 103 mL/min (50-200); Estimated Glomerular Filt Rate 75 ml/min (>60); GFR (African American) 90 ML/MIN (>60); Globulin 2.8 g/dL (1.3-3.2); Glucose 210 mg/dl (74-100); Potassium 3.7 mmoL/L (3.5-5.1); Sodium 134 mmol/L (136-145); Total Protein,Serum 7.1 g/dl (6.3-8.2)
[2023-06-22] MEDS: METOPROLOL TARTRATE 5MG/5ML VIAL 5 MG IV ×4 (13:19→14:05)
[2023-06-22] MEDS: NITROGLYCERIN 0.4MG SL TABLET 0.800000000000000044 MG SL (13:50)
[2023-06-22] MEDS: IOPAMIDOL-370 (76%);100ML BOTTLE 85 ML IV (14:14)
[2023-06-22] MEDS: 0.9 % SODIUM CHLORIDE 50 ML VIAL IV (14:14)
[2023-06-22] MEDS: SODIUM CHLORIDE 0.9% 10ML SYR (RAD ONLY) 10 ML IV (14:14)
== END 2023-06-22 15:00 | disposition home or self-care (01) ==
PROVIDERS: PCP Internal Medicine Adolescent Medicine; Visit Provider Internal Medicine Adolescent Medicine
DX: R07.9 Chest pain, unspecified (principal)
CPT/HCPCS: 75571; 75574; 80053; 82962; Q9967

== ENCOUNTER 2023-07-11 07:36 | Outpatient (CLI) | payer MEDICARE, SELFPAY ==
--- NOTE | 2023-07-11 | CA_ITS ---
APPROVED REPORT Exam: Exercise Treadmill Technologist: Briana Bustos, Ht: 5 ft 8 in Wt: 220 lbs BSA: 2.13 m2 HR: 71 bpm BP: 123/75 mmHg Rhythm: NSR Medical History Medications: Omeprazole,,,,, Losartan,,,,, Zetia,,,,, Atorvastatin,,,,, Flonase,,,,, TAMSULOSIN,,,,, Albuterol,,,,, Singulair,,,,, Janumet,,,,, KEPPRA,,,,, TrULicity,,,,, Trelegy Ellipta,,,,, Stress Test Details Test: Edi HR Resting HR: 74 bpm Max Heart Rate (APMHR): 154 bpm Max HR Achieved: 155 bpm Target HR (85% APMHR): 131 bpm % of APMHR: 101 Recovery HR: 90 bpm HR response to stress: Normal HR response to stress BP Resting BP: 120.0/76 mmHg Max BP: 165/77 mmHg Recovery BP: 141.0/74.0 mmHg BP response to stress: Normal blood pressure response to stress. ECG Resting ECG: Normal sinus rhythm Stress ECG: < 0.[address] depression Arrhythmia: Occasional PVCs Recovery ECG: Return to baseline within 3 minutes of recovery Recovery Arrhythmia: None Clinical Exercise duration: 08:26 min Highest Stage Achieved: 3 Exercise capacity: 10.1 METs Overall Exercise Capacity for Age: Average Stress ECG Conclusion The patient was able to exercise for a total of 8 minutes, 26 seconds. He achieved a total of 10.1 METS. He has average exercise capacity compared to age and sex matched peers. He has normal HR and BP response to exercise. MAX HR: 155 % of PM: 101 MAX BP: 165/77 MET's: 10.1 Test Stopped Due to: Fatigue Symptoms : Dyspnea Arrhythmias: PVC ST-T Changes: < 0.[address] depression Conlusion: Average exercise capacity. Stress ECG demonstrates no evidence of ischemia. Myoview images reported separately. Test Summary REST . . . . . . . Sitting REST . . . . . . . Standing REST 03:09 0.0 0.0 74 . 120/ 76 . . Stage 1 01:00 10.0 1.7 93 . . . . Stage 1 02:00 10.0 1.7 100 . . . . Stage 1 03:00 10.0 1.7 103 . 122/ 80 . . Stage 2 01:00 12.0 2.5 108 . . . . Stage 2 02:00 12.0 2.5 116 . 130/ 84 . . Stage 2 03:00 12.0 2.5 123 . 130/ 84 . . Stage 3 01:00 14.0 3.4 135 . . . . Stage 3 . . . . . . . Myoview Injected Stage 3 02:00 14.0 3.4 144 . . . . Stage 3 02:26 14.0 3.4 146 . . . Stop exercise at 08:26 RECOVERY 01:00 0.0 0.0 126 . . . . RECOVERY 02:00 0.0 0.0 113 . . . . RECOVERY 03:00 0.0 0.0 105 . . . . RECOVERY 04:00 0.0 0.0 101 . 116/ 80 . . RECOVERY 05:00 0.0 0.0 102 . 116/ 80 . . RECOVERY 06:00 0.0 0.0 94 . 165/ 77 . . RECOVERY 06:58 0.0 0.0 95 . 141/ 74 . . Electronically signed by : Laura Chisholm MD 07/11/2023 12:24:17
--- NOTE | 2023-07-11 08:15 | NM_ITS ---
APPROVED REPORT Exam: Nuclear Stress Test Indication: Chest pain, DM, High cholesterol, Family history Patient Location: Outpatient Stress Tech: Briana Concepcion [place] Tech:Irena Moss, ARRT, RT (R)(N) Ht: 5 ft 8 in Wt: 220 lbs HR: 74 bpm BP: 120/76 mmHg BSA: 2.13 m2 Rhythm: NSR TID: 1.05 BMI: 33.4 History: Chest pain, DM, High cholesterol, Family history Procedure: Patient exercised on Edi protocol 8:26 minutes and sec, resting heart rate 74 bpm, resting blood pressure 120/76 mmHg, with exercise maximum heart rate achived was 155 bpm which is 101 % of the maximum predicted heart rate and blood pressure was 165/77 mmHg. Test was stopped due to SOB. Patient denied any complaint of chest pain. Patient has average exercise capacity, achieved 10.1 METs of workload on treadmill, the blood pressure response to exercise was normal. Cardiac Stress and Resting SPECT Images: Cardiac Stress and Resting SPECT images were obtained using technetium 99m Myoview 32.4 mCi stress and 10.10 mCi at rest. Resting and stress imaging in supine and prone positions demonstrate a medium sized, moderate, reversible perfusion defect in the basal to mid inferior LV wall. Gated imaging demonstrates normal global LV systolic function. There is mild hypokinesis in the basal inferior LV wall. LVEF is calculated at 59%. Conclusion: Medium sized, moderate, reversible perfusion defect in the basal to mid inferior LV wall. Findings are suggestive of reversible ischemia. Gated imaging demonstrates normal global LV systolic function. There is mild hypokinesis in the basal inferior LV wall. LVEF is calculated at 59%. Electronically signed by : Laura Chisholm MD 07/11/2023 12:26:38
[2023-07-11] MEDS: SODIUM CHLORIDE 0.9% 10ML SYR (RAD ONLY) 10 ML IV ×2 (08:57→08:58)
[2023-07-11] MEDS: ISOTOPE MYOVIEW (PER STUDY) 1 DOSE IV (08:58)
== END 2023-07-11 23:59 ==
LOC: RAD 07:36
PROVIDERS: PCP Internal Medicine Adolescent Medicine; Visit Provider Internal Medicine Adolescent Medicine
DX: R07.9 Chest pain, unspecified (principal)
CPT/HCPCS: 78452; 93017; 93018; A9502

== ENCOUNTER 2024-04-08 07:54 | Outpatient (CLI) | payer MEDICARE, SELFPAY ==
--- NOTE | 2024-04-08 08:03 | US_ITS ---
PROCEDURE INFORMATION: Exam: US Abdomen, Limited; Right Upper Quadrant Exam date and time: 04/08/2024 8:18 AM Age: 68 years old Clinical indication: Abdominal pain; Acute; Additional info: Ruq pain/common bile duct dilation TECHNIQUE: Imaging protocol: Real time ultrasound of the abdomen with image documentation. Limited exam focused on the right upper quadrant. COMPARISON: US ABD. AORTA SCREENING 09/14/2020 8:46 AM FINDINGS: Liver: There is a diffuse increase in hepatic parenchymal echogenicity, consistent with fatty infiltration.. Gallbladder: The gallbladder is unremarkable. No gallstones. normal gallbladder wall Biliary ducts: Common bile duct 4.1-8.1 mm Pancreas: The pancreas is poorly-visualized due to overlying bowel gas. Right kidney: Right kidney 11.2 cm. No hydronephrosis Portal venous: Hepatopetal flow in the portal vein IMPRESSION: There is a diffuse increase in hepatic parenchymal echogenicity, consistent with fatty infiltration..
== END 2024-04-08 23:59 | disposition home or self-care (01) ==
LOC: RAD 07:55
PROVIDERS: PCP Internal Medicine Adolescent Medicine; Visit Provider Internal Medicine Adolescent Medicine
DX: K83.8 Other specified diseases of biliary tract (principal)
CPT/HCPCS: 76705

== ENCOUNTER 2024-07-13 11:12 | Outpatient (CLI) | payer MEDICARE, SELFPAY ==
--- NOTE | 2024-07-13 11:19 | XR_ITS ---
PROCEDURE INFORMATION: Exam: XR Chest Exam date and time: 07/13/2024 11:11 AM Age: 68 years old Clinical indication: Cough and shortness of breath and other: Cp; Patient HX: Has HX of asthma TECHNIQUE: Imaging protocol: Radiologic exam of the chest. Views: 2 views. COMPARISON: 1. DX CXR1VP XR chest portable 07/25/2018 12:[address] ANGIO NECK 06/07/2023 8:23 AM FINDINGS: Lungs: There is an old, small calcified granuloma in the periphery of the right mid lung. No acute pulmonary infiltrates identified. There are old calcified right hilar lymph nodes. Pleural spaces: Unremarkable. No pleural effusion. No pneumothorax. Heart/Mediastinum: Unremarkable. No cardiomegaly. Bones/joints: Unremarkable. IMPRESSION: Old granulomatous disease but no radiographic evidence of acute cardiopulmonary disease.
== END 2024-07-13 23:59 | disposition home or self-care (01) ==
LOC: LAB 11:13 → RAD 11:16
PROVIDERS: PCP Internal Medicine Adolescent Medicine; Visit Provider Internal Medicine Adolescent Medicine
DX: J45.901 Unspecified asthma with (acute) exacerbation (principal)
CPT/HCPCS: 71046

== ENCOUNTER 2024-12-23 06:58 | Day surgery (SDC) | payer MEDICARE, SELFPAY ==
[2024-12-17 11:57] VITALS: BMI 30.4
[2024-12-19 13:10] VITALS: BMI 30.9
[2024-12-23] MEDS: LACTATED RINGERS 1000ML 1,000 ML 50 ML IV (07:32)
[2024-12-23 07:36] VITALS: BP 122/64; PULSE 75; RESP 18; TEMP 36.2; O2SAT 97
--- NOTE | 2024-12-23 08:17 | EXP.ANES.CKL ---
[facility] Disclaimer: The information contained in this section may have been updated after the patient was seen, as this information can be updated by other users. Medical History Ganglion cyst Hyperlipidemia Diabetes mellitus Asthma Surgical History Colonoscopy planned [place] teeth removed Family History Sister Heart disease Social History Smoking Status: Never smoker second hand exposure: No alcohol intake: never substance use type: denies use current occupational status: retired Travel in the last 8 weeks?: None household members: none housing: house current occupational exposures/hazards: No caffeine: Yes Have you lived/traveled outside [place] in past 30 days?: No Contact w/someone who lives/traveled outside US past 30 days?: No Exposure to someone with infectious disease in past 14 days?: No Do you have a fever (greater than 100.4 F or 38 C)?: No Have you tested positive for COVID-19?: No Exposed to someone with COVID-19 in past 14 days?: No Do you have a sore throat?: No Do you have a cough?: No Do you have any weakness?: No Do you have any diarrhea?: No Are you experiencing any unusual bleeding?: No Do you have any muscle aches/pain?: No Do you have any abdominal pain?: No Are you experiencing loss of taste or smell?: No [facility] Anesthesia Checklist Patient Identification Patient Identification: Arm Band and Verbal (Name & ) Structural Data Admitted From: Home Planned Operative Procedure/s: colonscopy Consent for Planned Operative Procedure(s) Verified: Yes Verified Documents: Surgical Consent and History and Physical NPO Status Verified Time NPO: 00:00 Additional verifications Anesthesia Reactions: No Hx Blood Transfusions: No Blood Transfusion Reaction: No Airway Assessment Mallampati Score:: Class III Dentition: Good Dentition Neurological Assessment Level of Consciousness: Awake, Alert and Appropriate Anesthesia Plan Anesthesia Risk discussed: Yes Anesthesia Plan: Verified ASA Class: III Anesthesia Type: MAC
--- NOTE | 2024-12-23 08:35 | EXP.HP ---
History of Present Illness *Admission Date: 12/23/24 *Reason for visit:: Personal history of adenomatous colon polyps *History of present illness: Mr. Patterson is a 69-year-old gentleman who is here for surveillance colonoscopy secondary to a personal history of adenomatous colon polyps. The examination is deemed medically necessary for surveillance colonoscopy. The patient has been seen, interviewed and examined prior to the procedure by both myself and the anesthesia provider. [facility] Disclaimer: The information contained in this section may have been updated after the patient was seen, as this information can be updated by other users. Medical History Ganglion cyst Hyperlipidemia Diabetes mellitus Asthma Surgical History Colonoscopy planned Depue teeth removed Family History Sister Heart disease Social History Smoking Status: Never smoker second hand exposure: No alcohol intake: never substance use type: denies use current occupational status: retired Travel in the last 8 weeks?: None household members: none housing: house current occupational exposures/hazards: No caffeine: Yes Have you lived/traveled outside [place] in past 30 days?: No Contact w/someone who lives/traveled outside [place] past 30 days?: No Exposure to someone with infectious disease in past 14 days?: No Do you have a fever (greater than 100.4 F or 38 C)?: No Have you tested positive for COVID-19?: No Exposed to someone with COVID-19 in past 14 days?: No Do you have a sore throat?: No Do you have a cough?: No Do you have any weakness?: No Do you have any diarrhea?: No Are you experiencing any unusual bleeding?: No Do you have any muscle aches/pain?: No Do you have any abdominal pain?: No Are you experiencing loss of taste or smell?: No Other Medical History Have you received the Flu Vaccine for this season: No Have you received the Pneumonia Vaccine: Yes Review of Systems Review of Systems Review of systems (narrative): Negative *Cardiovascular Comments: Negative *Gastrointestinal Comments: Negative *Genitourinary Comments: Negative *Musculoskeletal Comments: Negative *Neurologic Comments: Negative Meds Home Medications and Allergies Home Medications ?Medication ?Instructions ?Recorded ?Confirmed ?Type aspirin 81 mg tablet,delayed 162 mg PO DAILY heart health 10/17/17 12/23/24 History release (Adult Low Dose Aspirin) ezetimibe 10 mg tablet (Zetia) 10 mg PO HS Cholesterol 10/17/17 12/23/24 History montelukast 10 mg tablet 10 mg PO HS allergies 10/17/17 12/23/24 History (Singulair) omeprazole 20 mg capsule,delayed 20 mg PO HS GERD 10/17/17 12/23/24 History release sitagliptin phosphate 50 1 tab PO HS Diabetes 10/17/17 12/23/24 History mg-metformin 1,000 mg tablet (Janumet) albuterol sulfate 90 mcg/actuation 1 puff inhalation Q4HP PRN asthma 07/25/18 12/23/24 History aerosol inhaler atorvastatin 80 mg tablet 80 mg PO HS Cholesterol 07/25/18 12/23/24 History fluticasone propionate 50 2 spr inhalation DAILY Allergy 07/25/18 12/23/24 History mcg/actuation nasal symptoms spray,suspension losartan 25 mg tablet 12.5 mg PO DAILY Hypertension 07/25/18 12/23/24 History tamsulosin 0.4 mg capsule 0.8 mg PO HS PROSTATE 07/25/18 12/23/24 History levetiracetam 500 mg tablet 500 mg PO BID seizures 12/16/19 12/23/24 History budesonide 160 mcg-glycopyr 9 2 inh inhalation BID 05/14/24 12/23/24 History mcg-formot 4.8 mcg/actuation HFA inhaler (Breztri Aerosphere) dulaglutide 4.5 mg/0.5 mL 4.5 mg SQ WEEKLY 05/14/24 12/23/24 History subcutaneous pen injector (Trulicity) prednisone 5 mg tablet 5 mg PO DAILY 05/14/24 12/23/24 History peg 3350-electrolytes 236 240 ml PO Q10M #4,000 mL 12/17/24 12/23/24 Rx gram-22.74 gram-6.74 gram-5.86 gram solution (Golytely) New Prescriptions to Start Prescriptions: Allergies Allergy/AdvReac Type Severity Reaction Status Date / Time venom-honey bee Allergy Severe swelling Verified 12/23/24 07:34 Exam Data for Last 24 hours Vital signs and Labs for Last 24 Hours: Temp Pulse Resp BP Pulse Ox O2 Del Method 97.2 F L 75 18 122/64 97 Room Air 12/23/24 07:36 12/23/24 07:36 12/23/24 07:36 12/23/24 07:36 12/23/24 07:36 12/23/24 07:36 *Routine HEENT Exam Head: Present normocephalic Eye: Present EOMI and PERRL ENT: Present mucous membranes moist *Routine Neck Exam Neck: Present supple *Routine Respiratory Exam Respiratory: Present CTA bilaterally *Routine Cardiovascular Exam Cardiovascular: Present RRR *Routine Abdominal Exam Abdominal: Present soft and normoactive bowel sounds; Absent tenderness *Routine Rectal Exam Rectal:: deferred *Routine Genitalia Exam Genitalia:: deferred *Routine Extremities Exam Extremities: Absent cyanosis, clubbing or edema *Routine Skin Exam Skin: Present warm; Absent rash *Routine Neurological Exam Neurological: Present alert and oriented X3 Assessment and Plan *Assessment and plan (1) Personal history of adenomatous and serrated colon polyps: Status: Acute Category: Medical Code(s): Z86.0101 - Personal history of adenomatous and serrated colon polyps Plan A/P: 1. Personal history of adenomatous colon polyps is the preprocedural diagnosis. The patient will be anesthetized/sedated using MAC sedation. The patient has been seen and examined. Cardiac and lung assessment prior to the examination is stable. Proceed with planned surveillance colonoscopy.
--- NOTE | 2024-12-23 08:47 | P.PCN_ITS ---
[facility] Procedure Note Date: 12/23/24 Time: 09:04 Procedure Note:: Colonoscopy Procedure Report: Colonoscopy with cold snare polypectomy Endoscopist: Bryce Araya II, MD Referring physician: Jon Arteaga M.D. Date of Procedure: December 23, 2024 Equipment: Olympus 190 variable stiffness pediatric colonoscope Sedation: MAC sedation Indication: Mr. Patterson is a 69-year-old gentleman who is here for follow-up screening/surveillance colonoscopy. He did have a colonoscopy with sc in December 2019 and had 4 polyps (tubular adenomas x 4) removed. I did recommend 5-year surveillance interval. He reports no abdominal pain, unintentional weight loss, change in his bowel habits or rectal bleeding. He reports no family history of colon cancer. He does have some intermittent chronic constipation. He does have a fatty liver/steatosis but no evidence of nonalcoholic fatty liver disease or JOHNSON. Procedure: Prior to the procedure, a history and physical exam was performed, and patient's medications and allergies were reviewed. The risks, benefits and alternatives of the sedation and procedure were discussed with the patient. All questions were answered and informed consent was obtained. The patient was brought to the procedure room. Patient identification and proposed procedure were verified by the physician and the nurse. The patient was placed in a left lateral decubitus position and the scope was passed under direct vision. Throughout the procedure, the patient's blood pressure, pulse, and oxygen saturations were monitored continuously. The colonoscopy was accomplished without difficulty. The patient tolerated the procedure well. Findings: On digital rectal examination there was normal rectal tone. There were no external hemorrhoids. The prostate was 2-3+, mildly firm but symmetric without nodules. The colonoscope was introduced through the anal canal to the rectum and advanced to the cecum. The ileocecal valve and appendiceal orifice were identified. The scope was advanced a short distance into the ileum which appeared grossly normal. The scope was then withdrawn into the colon. There were 4 diminutive polyps (cecum x 2 (3 and 5 mm) and ascending x 2 (4 and 4 mm)). These were all removed via cold snare polypectomy. The remaining cecum, ascending and transverse colon and mucosa were grossly normal. There were scattered diverticuli throughout the descending and sigmoid colon (LEFT colon). The rectum itself was normal. Upon retroflexion within the rectum there were grade 1-2 internal hemorrhoids. The preparation was excellent throughout with [place] Preparation Score of 9. The cecal time was 14 minutes. Impression: 1. Diminutive colonic polyps x 4 2. Extensive left-sided diverticulosis 3. Grade 1-2 internal hemorrhoids Plan: I will follow-up the polyp histology and recommend repeat surveillance colonoscopy again in 5 years if the polyps are adenomatous. I would encourage a fiber bowel regimen (combined MiraLAX plus Citrucel) on a long-term daily maintenance basis.
[2024-12-23 09:08] VITALS: BP 88/59; PULSE 68; RESP 14; TEMP 36.2; O2SAT 93
[2024-12-23 09:18] VITALS: BP 106/70; PULSE 65; RESP 16; TEMP 36.2; O2SAT 96
[2024-12-23 09:28] VITALS: BP 122/76; PULSE 65; RESP 16; TEMP 36.2; O2SAT 97
[2024-12-23 09:36] LABS: POC Glucose,Bedside 102 (70-110)
[2024-12-23 09:38] VITALS: BP 122/76; PULSE 66; RESP 17; TEMP 36.2; O2SAT 97
== END 2024-12-23 09:38 | disposition home or self-care (01) ==
PROVIDERS: PCP Internal Medicine Adolescent Medicine; Visit Provider Internal Medicine Gastroenterology
PROC: 0DJD8ZZ Inspection of Lower Intestinal Tract, Via Natural or Artificial Opening Endoscopic (ICD-10-PCS; CPT 45378; principal; 2024-12-23 08:30)
DX: Z12.11 Encounter for screening for malignant neoplasm of colon (principal); K57.30 Diverticulosis of large intestine without perforation or abscess without bleeding; K64.1 Second degree hemorrhoids; D12.2 Benign neoplasm of ascending colon; D12.0 Benign neoplasm of cecum; Z86.0101 Personal history of adenomatous and serrated colon polyps; E78.5 Hyperlipidemia, unspecified; E11.9 Type 2 diabetes mellitus without complications; J45.909 Unspecified asthma, uncomplicated; Z79.82 Long term (current) use of aspirin; Z79.899 Other long term (current) drug therapy; Z79.84 Long term (current) use of oral hypoglycemic drugs; Z79.51 Long term (current) use of inhaled steroids; Z79.85 Long-term (current) use of injectable non-insulin antidiabetic drugs; Z79.52 Long term (current) use of systemic steroids; Z91.030 Bee allergy status
CPT/HCPCS: 45385; 82962; J2003; J2704; J7120